=== PATIENT | male | born 1975 | race Caucasian/White ===

== ENCOUNTER 2024-11-24 09:25 | Emergency (ER) | payer OTHER, SELFPAY ==
--- NOTE | ~2024-11-24 | CT_ITS ---
CTA CHEST CLINICAL HISTORY: elevated d dimer, syncope . COMPARISON: Chest x-ray today TECHNIQUE: Helical CTA performed from thoracic inlet to upper abdomen IV contrast information not listed in PACS Coronal, sagittal reformats. Multiplanar MIPS CT images acquired with automatic exposure control for dose reduction DLP: 240 mGy-cm FINDINGS: Pulmonary arteries: No PE. Thoracic Aorta: No dissection or aneurysm. Heart/pericardium: Unremarkable. RV/LV ratio: Normal. Lungs/Pleura: Trace left basilar atelectasis. A few small calcified granulomata. Tracheobronchial tree: Patent. Nodes: No enlarged nodes. Bones: No acute bony abnormality. Soft tissues: Unremarkable. Visualized upper abdomen: Hepatomegaly, with steatosis. IMPRESSION: 1. No PE or other acute cardiopulmonary findings. Reviewed, dictated and finalized at location R.
--- NOTE | ~2024-11-24 | CT_ITS ---
CT HEAD NON-CONTRAST Clinical History: syncope vs seizure Comparison: None Technique: Unenhanced axial images skull base to vertex Coronal, sagittal reformats CT images acquired with automatic exposure control for dose reduction DLP: 605 mGy-cm Findings: Sulci, ventricles: Unremarkable. No intracerebral hemorrhage. No evidence acute territorial infarct. No mass effect, midline shift. Empty sella, usually no consequence unless hormonal abnormality. Bony calvarium intact. Visualized paranasal sinuses: Perez-opacification. Mastoid air cells: Clear. IMPRESSION: 1. No acute intracranial findings. Reviewed, dictated and finalized at location R.
--- NOTE | ~2024-11-24 | XR_ITS ---
Examination: XR chest 1V Clinical History: syncope Comparison: None Technique: Portable AP Findings: Heart size upper limit of normal. Lungs clear. A few small calcified granulomata. No acute bony abnormality. IMPRESSION: 1. No acute cardiopulmonary findings given portable technique. Reviewed, dictated and finalized at location R.
[2024-11-24 09:29] VITALS: BP 119/72; PULSE 72; RESP 16; TEMP 36.6; O2SAT 100
[2024-11-24 11:40] VITALS: BP 125/85; PULSE 76; RESP 18; O2SAT 98
--- NOTE | 2024-11-24 11:50 | ECG_ITS ---
Test Date: 2024-11-24 12:00:26 Measurements Intervals [place] Rate: 70 P: 54 IN: 159 QRS: 49 QRSD: 89 T: 39 QT: 366 QTc: 396 Interpretive Statements SINUS RHYTHM No previous ECG available for comparison Electronically Signed On 11-25-2024 20:41:23 CDT by Robi Stephen D.O
[2024-11-24] MEDS: SODIUM CHLORIDE 0.9% IV 1,000 ML 999 ML IV CONT (12:06)
--- NOTE | 2024-11-24 12:12 | ED.SYNCOPE ---
HPI - Syncope General Chief Complaint: Syncope Stated Complaint: syncope Time Seen by Provider: 11/24/24 11:31 Source: patient and RN notes reviewed Mode of arrival: ambulatory Limitations: no limitations History of Present Illness HPI narrative: THis is a 48 year old male who presents for evaluation of syncope. He states that yesterday he had mild dull headache. THis morning he continue to have mild headache. He was sitting down talking to his significant other when he felt like he was going to pass out. His significant other states he turned pale and he was lean back . She states he passed out for 30 seconds and then he came back today. She states they started talking again and he passed out again and he urinary incontinence. He states his headache has subsided. He denies having chest pain, palpitations or shortness of breath. HE denies previous history of seizures or passing out. Related Data Allergies Allergy/AdvReac Type Severity Reaction Status Date / Time No Known Allergies Allergy Verified 11/24/24 09:31 [facility] Past Medical History Medical History (Updated 11/24/24 @ 14:41 by eNena Haney MD) Patient denies medical problems Social History Social History (Updated 11/24/24 @ 12:19 by Neena Haney MD) Tobacco type: e-cigarettes/vaping Alcohol intake: current Alcohol use details: occasional Substance use type: marijuana Exam Const: General: no acute distress and alert Nutritional Appearance: well nourished Orientation/consciousness: patient oriented x3 HENMT: Head: normal to inspection Ears: external ears normal and TM's normal bilaterally Mouth: Yes Normal oral and palatal mucosa present, Yes lip normal and Yes moist mucous membranes Throat: posterior oropharynx normal Eyes: Pupils: Equal, round and reactive pupils present EOM: EOMs intact bilaterally Neck: Neck: normal visual inspection Resp: Effort & Inspection: normal respiratory effort Auscultation: clear to auscultation bilaterally Cardio: Rate: regular rate Rhythm: regular rhythm Heart sounds: no murmurs GI: Auscultation: normal bowel sounds Back/Spine/Pelvis: Back: no CVA tenderness Skin: General skin exam: normal color Rashes: no rashes Neuro: General: patient oriented x3, moves all extremities, no focal motor deficits and CN's II-XI intact bilaterally Cranial nerves: Yes Nystagmus not present Extrem: General: normal to inspection Psych: Mental Status: mental status grossly normal Affect: normal affect Attitude: cooperative Course Reevaluation(s) Reevaluation #1: Patient presented after syncopal episode. In ER he did not have any complaints. labs ordered with elevate d dimer. HEadache had resolved and CT brain negative for SAH. It did show sinus disease. He reports symptoms of sinus issues wo will treat this as this may be cause of his intermittent headache. CTA orderd for evaluated d dimer. CTA negative as well. He was given 1 liter IV fluid. I discussed with patient about observation on telemetry vs outpatient evaluation. At this time, he feels comfortable with outpatient evaluation. HE will return if he has another episode. Significant other is at bedside. Date: 11/24/24 Time: 14:39 Vital Signs Vital signs: Vital Signs Temperature 97.8 F 11/24/24 09:29 Pulse Rate 72 11/24/24 09:29 Respiratory Rate 16 11/24/24 09:29 Blood Pressure 119/72 11/24/24 09:29 Pulse Oximetry 100 11/24/24 09:29 Temperature 97.8 F 11/24/24 09:29 Pulse Rate 69 11/24/24 14:00 Respiratory Rate 13 11/24/24 14:00 Blood Pressure 114/74 11/24/24 14:00 Pulse Oximetry 100 11/24/24 14:00 MDM - Syncope Differential Diagnosis Differential diagnosis: Likely syncope due to orthostatic hypotension, vasovagal syncope, subarachnoid hemorrhage, pulmonary embolism, dehydration and other (arrhythmia) Lab Data Attestation: I reviewed the patient's lab results. 11/24/24 12:01 11/24/24 12:01 Labs: Lab Results 11/24/24 11/24/24 Range/Units 12:01 12:10 WBC 7.9 (4.5-10.0) K/mm3 RBC 4.59 L (4.6-6.20) M/mm3 Hgb 13.6 L (14.0-18.0) g/dL Hct 42.1 (42.0-52.0) % MCV 91.7 (80-100) fl MCH 29.6 (26-34) pg MCHC 32.3 (32-36) g/dl RDW 12.3 (11.5-14.5) % Plt Count 239 (150-375) k/mm3 MPV 9.7 (7.4-10.4) fl Immature Gran % (Auto) 0.3 (0-0.5) % Neut % (Auto) 81.8 H (45.5-73.1) % Lymph % (Auto) 7.8 L (18.3-44.2) % [place] % (Auto) 9.3 H (2.6-8.5) % Eos % (Auto) 0.4 (0-4.4) % Baso % (Auto) 0.4 (0.2-1.2) % Lymph # (Auto) 0.62 L (0.9-3.2) K/mm3 [place] # (Auto) 0.7 H (0.1-0.6) K/mm3 Eos # (Auto) 0.0 (0-0.3) K/mm3 Baso # (Auto) 0.0 (0.0-0.1) K/mm3 Abs Immat Gran (auto) 0.02 (0.00-0.031) K/mm3 Absolute Neuts (auto) 6.5 (1.3-6.7) K/mm3 Absolute Nucleated RBC 0.000 (0.0-0.012) K/mm3 Nucleated RBC % 0.0 (0.0-0.2) % PT 13.9 (11.1-14.7) Seconds INR 1.1 APTT 30.6 (22.3-36.8) Seconds D-Dimer 1.54 H (<0.48) ug/mL Sodium 133 L (137-145) mmol/L Potassium 4.3 (3.4-5.0) mmol/L Chloride 100 (98-107) mmol/L Carbon Dioxide 27 (22-30) mmol/L Anion Gap 6 (4-12) mmol/L BUN 11 (9-20) mg/dL Creatinine 0.89 (0.7-1.3) mg/dL Estim Creat Clear Calc 85 ml/min Estimated GFR > 60 (59 - ) Glucose 102 (65-110) mg/dL Calcium 8.4 (8.4-10.2) mg/dL Magnesium 2.3 (1.6-2.3) mg/dL Total Bilirubin 0.5 (0.2-1.3) mg/dL AST 38 (17-59) U/L ALT 31 (6-50) U/L Alkaline Phosphatase 68 (38-126) U/L Troponin I < 0.012 (0.000-0.034) ng/mL Total Protein 7.9 (6.3-8.2) g/dL Albumin 4.2 (3.5-5.1) g/dL Urine Color Yellow (Yellow) Urine Appearance Clear (Clear) Urine pH 7.0 (5.0-9.0) Ur Specific [place] 1.015 (1.001-1.035) Urine Protein Trace (Negative) mg/dL Urine Glucose (UA) Negative (Negative) mg/dL Urine Ketones Trace H (Negative) mg/dL Ur Blood (Man) Negative (Negative) Urine Nitrate Negative (Negative) Urine Bilirubin Negative (Negative) Urine Urobilinogen 1.0 (<2.0) mg/dL Leukocyte Esterase Rfl Negative (Negative) FRANK/UL Urine RBC 3-5 H (0-2) /hpf Urine WBC 0-5 (0-3) /hpf Ur Squamous Epith Cells None seen (Few) /hpf Urine Bacteria None seen /hpf Urine Casts 3-5 Urine Opiates Screen Negative (Negative) Urine Methadone Screen Negative (Negative) Ur Barbiturates Screen Negative (Negative) Ur Phencyclidine Scrn Negative (Negative) Ur Amphetamine Screen Negative (Negative) U Benzodiazepines Scrn Negative (Negative) Urine Cocaine Screen Negative (Negative) U Cannabinoids Screen Negative (Negative) Imaging Data Radiologist's impression: ITS Impressions Head CT 11/24/24 12:29 IMPRESSION: 1. No acute intracranial findings. Chest X-Ray 11/24/24 12:35 IMPRESSION: 1. No acute cardiopulmonary findings given portable technique. Chest CTA 11/24/24 13:44 IMPRESSION: 1. No PE or other acute cardiopulmonary findings. ECG Data EKG #1: Attestation: I personally reviewed and interpreted this ECG as follows: ECG completion date: 11/24/24 ECG completion time: 12:00 EKG Interpretation: normal rate (70), sinus rhythm, normal QRS and NL axis Discharge Plan Discharge Clinical Impression: Syncope and collapse, Paranasal sinus disease Patient Disposition: Home Condition: Stable Instructions: Antibiotic Form, Sinusitis (ED), Syncope (ED) Additional Instructions: I recommend that your follow up with primary care provider this week. IF you pass out again return to ER. If you develop chest pain, shortness of breath or worsening symptoms return to ER. Stay hydrated and eat proper meals. Patient Language: [place]i Prescriptions: New Simply Saline 0.9 % aerosol,spray 1 spray intranasal BID PRN (Reason: nasal congestion) Qty: 45 0RF doxycycline hyclate 100 mg tablet 100 mg PO Q12H Qty: 14 0RF Follow-up/Referrals: PHYSICIAN,APPEALS ASSISTANT [Primary Care Provider, Internal Medicine] Wyatt Bennett MD [Physician, Family Practice] Stand Alone Forms: Work/School Release IP
[2024-11-24 12:13] LABS: Hematocrit 42.1 % (42.0-52.0); Hemoglobin 13.6 g/dL (14.0-18.0); Immature Granulocyte Percent A 0.3 % (0-0.5); Lymphocytes Absolute Auto 0.62 K/mm3 (0.9-3.2); Mean Corpuscular HGB Conc 32.3 g/dl (32-36); Mean Corpuscular Hemoglobin 29.6 pg (26-34); Mean Corpuscular Volume 91.7 fl (80-100); Nucleated Red Blood Cells Absolute Auto 0.000 K/mm3 (0.0-0.012); Nucleated Red Blood Cells Perc 0.0 % (0.0-0.2); Platelet Count Result 239 k/mm3 (150-375); Red Blood Count 4.59 M/mm3 (4.6-6.20); White Blood Count 7.9 K/mm3 (4.5-10.0)
[2024-11-24 12:21] LABS: Add Urine Microscopic? YES; Appearance Urine Clear (Clear); Glucose Urine UA Negative (Negative); Leukocyte Esterase Ur Negative LEU/UL (Negative); Nitrate Urine Negative (Negative); Specific Grav Ur 1.015 (1.001-1.035)
[2024-11-24 12:27] LABS: INR 1.1; Prothrombin Time 13.9 Seconds (11.1-14.7)
[2024-11-24 12:28] LABS: Partial Thromboplastin Time 30.6 Seconds (22.3-36.8)
[2024-11-24 12:30] LABS: Alanine Aminotransferase 31 U/L (6-50); Albumin Level 4.2 g/dL (3.5-5.1); Alkaline Phosphatase 68 U/L (38-126); Anion Gap 6 mmol/L (4-12); Aspartate Amino Transferase 38 U/L (17-59); Bilirubin,Total 0.5 mg/dL (0.2-1.3); Blood Urea Nitrogen 11 mg/dL (9-20); Calcium 8.4 mg/dL (8.4-10.2); Carbon Dioxide 27 mmol/L (22-30); Chloride 100 mmol/L (98-107); Estimated CRCL calculation 85 ml/min; Estimated Glomerular Filt Rate > 60; Glucose 102 mg/dL (65-110); Magnesium 2.3 mg/dL (1.6-2.3); Potassium 4.3 mmol/L (3.4-5.0); Sodium 133 mmol/L (137-145); Total Protein 7.9 g/dL (6.3-8.2)
[2024-11-24 12:37] LABS: Troponin I < 0.012 ng/mL (0.000-0.034)
[2024-11-24 12:41] LABS: Cannabinoid Screen Urine Negative (Negative)
[2024-11-24 14:00] VITALS: BP 114/74; PULSE 69; RESP 13; O2SAT 100
== END 2024-11-24 15:00 | disposition home or self-care (01) ==
PROVIDERS: Emergency Provider General Practice
DX: R55 Syncope and collapse (principal); J32.9 Chronic sinusitis, unspecified; F17.290 Nicotine dependence, other tobacco product, uncomplicated; F12.90 Cannabis use, unspecified, uncomplicated
CPT/HCPCS: 36415; 70450; 71045; 71275; 80053; 80307; 81001; 83735; 84484; 85025; 85380; 85610; 85730; 93005; 96360; 99284; J7030; Q9967